=== PATIENT | male | born 1955 | race Caucasian/White ===

== ENCOUNTER → 2018-06-22 18:16 | Outpatient (REF) | payer BC, SELFPAY ==
[2018-06-22 19:29] LABS: Blood Urea Nitrogen 12 mg/dL (9-20); Calcium 9.7 mg/dL (8.4-10.2); Carbon Dioxide 26 mmol/L (22-32); Chloride 103 mmol/L (98-107); Cholesterol 147 mg/dL (140-199); Estimated Glomerular Filt Rate > 60.0 mL/min (>60); Glucose 104 mg/dL (80-110); HDL Cholesterol 46 mg/dL (40-60); HEMOLYSIS 33 (0-50); LDL Cholesterol Calculated 85 mg/dL (<100); Potassium 4.8 mmol/L (3.4-5.1); Sodium 137 mmol/L (137-145); Triglycerides 79 mg/dL (35-150)
== END ==
LOC: LAB 18:16
PROVIDERS: Visit Provider Physician Assistant
DX: E78.5 Hyperlipidemia, unspecified (principal); I10 Essential (primary) hypertension
CPT/HCPCS: 36415; 80048; 80061